=== PATIENT | female | born 1930 | race Caucasian/White ===

== ENCOUNTER 2019-11-04 17:30 | Emergency (ER) | payer MEDICARE ==
--- NOTE | 2019-11-04 18:17 | EDM.PDOC ---
ED HPI GENERAL MEDICAL PROBLEM - General Chief Complaint: Lower Extremity Injury/Pain Stated Complaint: RT LEG PAIN Time Seen by Provider: 11/04/19 18:08 Source of Information: Reports: Patient, RN Notes Reviewed History Limitations: Reports: No Limitations - History of Present Illness INITIAL COMMENTS - FREE TEXT/NARRATIVE: 89-year-old female presents emergency department a complaint of right leg pain, she states she has had this pain for 3 days, not initially when she was feeding horses pain is predominantly in the Mid leg has no pain at rest pain is exacerbated with standing, denies any trauma, feels better when the leg is elevated knee Pain Score (Numeric/FACES): 4 - Related Data Allergies Allergy/AdvReac Type Severity Reaction Status Date / Time No Known Allergies Allergy Verified 11/04/19 17:45 Home Meds: Home Meds Chlorella 1,400 mg PO DAILY 02/15/15 [History] Cholecalciferol (Vitamin D3) [Vitamin D3] 1 tab PO DAILY 02/15/15 [History] Lisinopril [Zestril] 10 mg PO DAILY 02/15/15 [History] Phosphatidyl Serine [Phosphatidylserine] 100 mg PO DAILY 02/15/15 [History] Probioserene 1 tsp PO DAILY 02/15/15 [History] Rauwolfia Serpentina 1 cap PO TID 02/15/15 [History] Thyroid [[place] Thyroid] 600 mg PO DAILY 02/15/15 [History] Past Medical History HEENT History: Reports: Impaired Vision Cardiovascular History: Reports: Hypertension [employer] History: Reports: - Past Surgical History GI Surgical History: Reports: Cholecystectomy Female Surgical History: Reports: Section Social & Family History - Tobacco Use Smoking Status *Q: Never Smoker - Caffeine Use Caffeine Use: Reports: Coffee Review of Systems - Review of Systems Review Of Systems: See Below Respiratory: Reports: No Symptoms Cardiovascular: Reports: No Symptoms GI/Abdominal: Reports: No Symptoms Musculoskeletal: Reports: Leg Pain Skin: Reports: No Symptoms ED EXAM, GENERAL - Physical Exam Exam: See Below Free Text/Narrative:: Examination of the lower extremities I do not appreciate any erythema there is no edema there is no breaks in the skin pedal pulses +2 there is no pain with dorsiflexion I do not appreciate any calf edema there is no specific point tenderness to the knee tib-fib area or the ankle Exam Limited By: No Limitations General Appearance: Alert, WD/WN, No Apparent Distress Respiratory/Chest: No Respiratory Distress Course - Vital Signs Last Recorded V/S: Last Vital Signs Temp 98.0 F 11/04/19 17:44 Pulse 82 11/04/19 19:34 Resp 16 11/04/19 19:34 BP 159/84 H 11/04/19 19:34 Pulse Ox 98 11/04/19 19:34 - Orders/Labs/Meds Orders: Active Orders 24 hr Category Date Time Status Tibia Fibula Rt [CR] Stat Exams 11/04/19 18:13 Taken VL Duplex Lwr Ext Veins Ltd Rt [US] Stat Exams 11/04/19 19:21 Ordered Labs: Laboratory Tests 11/04/19 11/04/19 11/04/19 Range/Units 18:25 18:25 18:25 WBC 10.7 (4.5-11.0) K/uL RBC 4.42 (3.30-5.50) M/uL Hgb 11.2 L (12.0-15.0) g/dL Hct 37.1 (36.0-48.0) % MCV 84 (80-98) fL MCH 25 L (27-31) pg MCHC 30 L (32-36) % Plt Count 407 H (150-400) K/uL Neut % (Auto) 78 H (36-66) % Lymph % (Auto) 13 L (24-44) % [place] % (Auto) 8 H (2-6) % Eos % (Auto) 0 L (2-4) % Baso % (Auto) 1 (0-1) % D-Dimer, Quantitative 950 H (0.0-400.0) ng/mL Sodium 144 (140-148) mmol/L Potassium 4.1 (3.6-5.2) mmol/L Chloride 107 (100-108) mmol/L Carbon Dioxide 28 (21-32) mmol/L Anion Gap 8.8 (5.0-14.0) mmol/L BUN 19 H (7-18) mg/dL Creatinine 0.8 (0.6-1.0) mg/dL Est Cr Clr Drug Dosing 46.36 mL/min Estimated GFR (MDRD) > 60 (>60) Glucose 117 H (74-106) mg/dL Calcium 8.6 (8.5-10.1) mg/dL Departure - Departure Time of Disposition: 20:35 Disposition: Home, Self-Care 01 Condition: Fair Clinical Impression: Right leg pain - Discharge Information Referrals: Prosper Johnson Sr, MD [Primary Care Provider] - Forms: ED Department Discharge Additional Instructions: Try ibuprofen as needed for pain control, please followup with your primary care provider in 2-3 days if not better, please call return to the emergency department with worsening of symptoms. Sepsis Event Note - Evaluation Sepsis Screening Result: No Definite Risk - Focused Exam Vital Signs: Vital Signs Temp Pulse Resp BP Pulse Ox 11/04/19 19:34 82 16 159/84 H 98 11/04/19 17:44 98.0 F 91 16 156/78 H 99 Date Exam was Performed: 11/04/19 Time Exam was Performed: 20:34 - My Orders Last 24 Hours: My Active Orders 11/04/19 18:13 Tibia Fibula Rt [CR] Stat 11/04/19 19:21 VL Duplex Lwr Ext Veins Ltd Rt [US] Stat - Assessment/Plan Last 24 Hours: My Active Orders 11/04/19 18:13 Tibia Fibula Rt [CR] Stat 11/04/19 19:21 VL Duplex Lwr Ext Veins Ltd Rt [US] Stat Plan: Assessment Acuity = acute Site and laterality = right lower extremity pain Etiology = unknown Manifestations = none Location of injury = Home Lab values = CBC, BMP unremarkable d-dimer slightly elevated 950 of uncertain significance, ultrasound shows no DVT Plan I did review lab work ultrasound results with her recommend she try ibuprofen for the pain control follow-up primary care next 2 to 3 days for reevaluation This note was dictated using [employer] voice recognition software please call with any questions on syntax or grammar.
[2019-11-04 19:40] VITALS: BP 159/84; PULSE 82
--- NOTE | 2019-11-04 20:41 | CRLUS ---
INDICATION: Right leg pain with elevated D-dimer TECHNIQUE: Ultrasound venous duplex right lower extremity. Rick-scale, color Doppler, and spectral Doppler imaging were performed with compression and augmentation. COMPARISON: None FINDINGS: Deep veins: The right common femoral, femoral, popliteal, and visualized calf veins are fully compressible, demonstrate normal color flow, and normal response to mechanical augmentation. The Duplex Doppler waveforms are normal in appearance. The visualized contralateral left common femoral vein is patent. Superficial veins: The visualized greater saphenous and superficial veins of the leg and calf are unremarkable. Soft tissue: No masses or cysts are identified. No adenopathy is seen. IMPRESSION: 1. No sonographic evidence of acute deep venous thrombosis seen. Dictated by: Stephen Dias MD @ 11/04/2019 20:39:09 (Electronically Signed)
--- NOTE | 2019-11-05 08:48 | CR ---
Tibia Fibula Rt CLINICAL HISTORY: Pain FINDINGS: Two views show no evidence of fracture or bone destruction. There is some soft tissue fullness anterior to the tibia. Some of this may be projectional. Impression: No fracture Soft tissue prominence within the muscular fascia. Some of this may be projectional. Clinical correlation is necessary.
== END 2019-11-04 20:44 | disposition home or self-care (01) ==
LOC: JP.ED 17:30
DX: M79.604 Pain in right leg (principal); I10 Essential (primary) hypertension; Z79.899 Other long term (current) drug therapy; X50.9XXA Other and unspecified overexertion or strenuous movements or postures, initial encounter
CPT/HCPCS: 36415; 73590-26-RT; 73590-RT; 80048; 85025; 85379; 93971-RT; 99283; 99284-25